=== PATIENT | male | born 1980 | race Hispanic/Latino ===

== ENCOUNTER 2018-06-15 20:31 | Emergency (ER) | payer BC ==
[2018-06-15] MEDS ORDERED: Adacel (T-DAP) 0.5 ML SYRINGE ONE (20:49)
[2018-06-15] MEDS ORDERED: Lidocaine 1% w/Epinephrine 1:100K 20 ML VIAL ONE (20:53)
--- NOTE | 2018-06-15 22:40 | RAD ---
LEFT TIBIA AND FIBULA TWO VIEWS: 06/15/18 HISTORY: 38-year-old male with history of injury to lower leg, laceration. There is some bandage material over the inferior aspect of the upper portion of the lower leg. No fra cture or dislocation. No overt opaque foreign body. IMPRESSION: Evidence for soft tissue injury anteriorly overlying the proximal portion of the lower leg. No fractu re or dislocation or evidence for foreign body. POS: [facility]
== END 2018-06-15 22:12 | disposition home or self-care (01) ==
LOC: ERS 20:31
DX: S81.812A Laceration without foreign body, left lower leg, initial encounter (principal); W26.8XXA Contact with other sharp object(s), not elsewhere classified, initial encounter
CPT/HCPCS: 12002; 90471; 90715; J2001